=== PATIENT | male | born 1990 | race Caucasian/White ===

== ENCOUNTER 2018-06-27 05:09 | Emergency (ER) | payer SELFPAY ==
[2018-06-27] MEDS: LORAZEPAM 0.5 MG TAB PO (06:54)
== END 2018-06-27 07:28 | disposition home or self-care (01) ==
LOC: FTE 05:09
DX: R07.89 Other chest pain (principal); F41.9 Anxiety disorder, unspecified; F17.210 Nicotine dependence, cigarettes, uncomplicated
CPT/HCPCS: 93005; 99283-25

== ENCOUNTER 2018-10-21 16:09 | Emergency (ER) | payer SELFPAY, MEDICAID | END 2018-10-21 17:07 | disposition left against medical advice (07) | LOC: E/R 16:09 | DX: Z53.21 Procedure and treatment not carried out due to patient leaving prior to being seen by health care provider (principal) ==